=== PATIENT | male | born 2000 | race Caucasian/White ===

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

== ENCOUNTER → 2019-01-13 18:41 | Outpatient (CLI) | payer MEDICAID ==
[2018-09-05 06:05] VITALS: BMI 21.1
[2019-01-20 18:08] LABS: AEROBE ID Final report (())
== END | disposition home or self-care (01) ==
LOC: D.LABREF 18:41
PROVIDERS: ATTEND Urology
DX: N39.0 Urinary tract infection, site not specified (principal)

== ENCOUNTER → 2019-02-05 12:55 | Outpatient (CLI) | payer MEDICAID ==
[2018-09-05 06:05] VITALS: BMI 21.1
[2019-02-05 13:47] LABS: APPEARANCE HAZY (CLEAR); BILIRUBIN NEGATIVE (NEGATIVE); COLOR YELLOW (YELLOW); GLUCOSE NEGATIVE (NEGATIVE); KETONE NEGATIVE (NEGATIVE); NITRITE NEGATIVE (NEGATIVE); PROTEIN 1+ mg/dL (NEGATIVE); SPECIFIC GRAVITY 1.005 (1.005-1.020); UROBILINOGEN NORMAL (NORMAL)
[2019-02-05 13:50] LABS: BACTERIA MODERATE /hpf (NEGATIVE); RED CELLS - URINE 0-5 /hpf (0-5)
== END | disposition home or self-care (01) ==
LOC: D.LABREF 12:55
PROVIDERS: ATTEND Urology
DX: N31.9 Neuromuscular dysfunction of bladder, unspecified (principal); N39.0 Urinary tract infection, site not specified; Q91.7 Trisomy 13, unspecified

== ENCOUNTER 2019-02-18 13:24 | Inpatient (IN) | payer MEDICAID ==
[~2019-02-18] VITALS: Ht 152.4 cm; Wt 49.9 kg
[2019-02-18] MEDS ORDERED: AMOX TR-K CLV 475 ML PO (13:45)
[2019-02-18] MEDS ORDERED: BACTRIM 400-801 TAB PO (13:45)
[2019-02-18 14:22] LABS: BASOPHILS 0.1 % (0-2); EOSINOPHILS 0.9 % (0-7); HEMATOCRIT 43.4 % (42.0-54.0); HEMOGLOBIN 13.8 g/dL (13.5-17.5); IMMATURE GRANULOCYTES 0.2 % (0-5); LYMPHOCYTES 38.5 % (15-50); MCH 26.8 pg (26.0-34.0); MCHC 31.8 g/dL (31.0-37.0); MCV 84.4 fL (80.0-100.0); MEAN PLATELET VOLUME 8.9 fL (7.4-10.4); MONOCYTES 6.5 % (2-11); NEUTROPHILS 53.8 % (40-80); PLATELET COUNT 317 10x3/uL (130-400); RBC 5.14 10x6/uL (4.20-6.10); RDW 16.3 % (11.5-14.5); WBC 8.5 10x3/uL (4.8-10.8)
[2019-02-18 14:27] LABS: CALC OSMOLALITY 280 mosm/kg (275-300); CALCIUM 9.4 mg/dL (8.5-10.1); CARBON DIOXIDE 16.9 mmol/L (21.0-32.0); CHLORIDE - SERUM 105 mmol/L (98-107); GLUCOSE 130 mg/dL (74-106); POTASSIUM - SERUM 3.9 mmol/L (3.5-5.1); SODIUM 137 mmol/L (136-145); UREA NITROGEN 26 mg/dL (7-18); eGFR NON AFRICAN AMERICAN 21 mL/min (90-120)
[2019-02-18 14:32] LABS: APPEARANCE CLOUDY (CLEAR); BILIRUBIN NEGATIVE (NEGATIVE); COLOR STRAW (YELLOW); GLUCOSE NEGATIVE (NEGATIVE); KETONE NEGATIVE (NEGATIVE); NITRITE NEGATIVE (NEGATIVE); PROTEIN 2+ mg/dL (NEGATIVE); UROBILINOGEN NORMAL (NORMAL)
[2019-02-18 14:36] LABS: BACTERIA FEW /hpf (NEGATIVE); EPITHELIAL CELLS NSEEN /hpf (0-5); URIC ACID CRYSTALS 0-5 /hpf (NONE SEEN); WHITE CELLS - URINE 0-5 /hpf (NEGATIVE)
[2019-02-18 14:37] LABS: ALKALINE PHOSPHATASE 429 U/L (46-116); ALT (SGPT) 22 U/L (10-68); AMYLASE - SERUM 33 U/L (25-115); BILIRUBIN - TOTAL 0.17 mg/dL (0.2-1.3); LIPASE 178 U/L (73-393); TROPONIN-I < 0.017 ng/mL (0.000-0.060)
--- NOTE | 2019-02-18 16:14 | NUR ---
PT LEFT ED TO FLOOR @ 1614, PT HAD PULLED OUT IV CATH INTACT, IT TOOK A WHILE TO RESTART THE IV R/T PT FLAPPING ARMS, 20G PIV SL TO RIGHT FA, SECURED WITH OPSITE AND TAPE.
--- NOTE | 2019-02-18 16:51 | NUR ---
RECEIVED PT FROM ER ACCOMPANIED BY FAMILY. PT IS AWAKE AND ALERT BUT EXTREMELY DEVELOPMENTALLY DELAYED. RR EVEN AND UNLABORED ON RA. ABX AND BOLUS OF NS COMPLETE. NO S/S OF DISTRESS NOTED. WILL CTM.
[2019-02-18 17:58] VITALS: BP 136/83; BMI 21.5
[2019-02-18 19:09] LABS: APTT 29.6 SECONDS (22.8-39.4); INR 1.66 (0.85-1.17)
--- NOTE | 2019-02-18 19:19 | NUR ---
EVENING ROUNDS COMPLETE, PT LAYING IN BED, FAMILY AT BEDSIDE. NO SIGNS OF DISTRESS. PT IS ALERT BUT NOT ORIENTATED DUE TO DISABILITY. CL IN REACH, BED IN LOWEST POSITION.
--- NOTE | 2019-02-18 19:47 | NUR ---
DR HURTADO WAS CALLED MY IMAGING TO SEE IF THERE WAS ANYTHING TO GIVE TO HELP CALM PT WHILE HE WAS IN CT, THIS NURSE SPOKE WITH DR HURTADO AND WAS TOLD TO ORDER IM VALIUM WITH HIS REGULAR DOSE, AND TO GET THE DOSAGE INFORMATION FROM THE MOTHER AT BEDSIDE. WHEN THIS NURSE ASKED PT MOTHER WHAT WAS HIS NORMAL DOSE BEFORE STRESSFUL SITUATIONS OF VALIUM, PT MOTHER STATED HE DOESNT TAKE VALIUM. AFTER SPEAKING WITH HER FOR A FEW MINUTES THIS NURSE DISCOVERED PT TAKES LORAZAPAM TO HELP CALM HIM DOWN. PT MOTHER IS UNAWARE OF WHAT MG OF LORAZAPAM PT TAKES STATING "I DONT KNOW GRAMS OF ANYTHING". THIS NURSE ATTEMPTED TO PAGE DR HURTADO VIA ANSWERING SERVICE, ANSWERING SERVICE PAGED DR MCKEON AND DR JUSTIN RETURNED MY PAGE. ATTEMPTED TO CALL DR HURTADO VIA CELL NUMBER AND UNABLE TO LEAVE VOICE MAIL.
--- NOTE | 2019-02-18 22:59 | NUR ---
PT IS REFUSING TO ALLOW STAFF TO OBTAIN VITALS. E COMMERCE MARKETING ANALYST ATTEMPTED X2, THIS NURSE ATTEMPTED. PT MOTHER AT BEDSIDE, STATING HE IS GETTING TIRED. CL IN REACH, BED IN LOWEST POSITION.
[2019-02-19 04:41] LABS: BASOPHILS 0.3 % (0-2); EOSINOPHILS 1.2 % (0-7); HEMATOCRIT 38.9 % (42.0-54.0); HEMOGLOBIN 12.2 g/dL (13.5-17.5); IMMATURE GRANULOCYTES 0.1 % (0-5); LYMPHOCYTES 48.3 % (15-50); MCH 26.9 pg (26.0-34.0); MCHC 31.4 g/dL (31.0-37.0); MCV 85.7 fL (80.0-100.0); MEAN PLATELET VOLUME 8.7 fL (7.4-10.4); MONOCYTES 9.5 % (2-11); NEUTROPHILS 40.6 % (40-80); PLATELET COUNT 275 10x3/uL (130-400); RBC 4.54 10x6/uL (4.20-6.10); RDW 16.5 % (11.5-14.5); WBC 7.5 10x3/uL (4.8-10.8)
[2019-02-19 05:00] LABS: ALBUMIN 3.2 g/dL (3.4-5.0); ANION GAP 16.6 mmol/L (8-16); BILIRUBIN - TOTAL 0.18 mg/dL (0.2-1.3); CALCIUM 8.5 mg/dL (8.5-10.1); CARBON DIOXIDE 19.7 mmol/L (21.0-32.0); CREATININE - SERUM 3.4 mg/dL (0.6-1.3); POTASSIUM - SERUM 4.3 mmol/L (3.5-5.1); PROTEIN - SERUM 6.6 g/dL (6.4-8.2)
--- NOTE | 2019-02-19 07:43 | NUR ---
REPORT RECIEVED. PT SITTING IN CHAIR. MOM IN BED. RR EVEN AND UNLBAORED. PT REFUSED V/S TO BE TAKEN. CANELO WITH CT IN ROOM. MOM IS GOING TO HAVE HER BRING HIS ATIVAN TO FIND OUT WHAT DOSE HE TAKES AT HOME. WILL CTM
--- NOTE | 2019-02-19 09:00 | NUR ---
RECIEVED ORDERS FROM DR HURTADO TO GIVE PT ATIVAN 2MG IV ONE TIME FOR CT SCAN.
[2019-02-19 10:50] VITALS: Ht 152.4 cm; Wt 49.9 kg
[2019-02-19 11:51] VITALS: BP 106/54
[2019-02-19 12:20] LABS: INR 1.48 (0.85-1.17); PROTIME 17.3 SECONDS (11.6-15.0)
--- NOTE | 2019-02-19 17:01 | NUR ---
I have reviewed this patient and I concur with the Shift Assessment completed by the Licensed Practical Nurse today this shift.
--- NOTE | 2019-02-19 21:00 | NUR ---
PT UNWILLING TO LET THE GOLD LEAF PRINTER ZAINA TAKE VITAL SIGNS. HE PULLS HIS ARM AWAY WHEN WE GET CLOSE. PER HIS MOTHER, SHE WOULD LIKE TO HOLD OFF ON GETTING VITALS RIGHT NOW. PT DOES NOT APPEAR TO BE IN DISTRESS. HE IS SITTING UP IN THE CHAIR PLAYING ON A TABLET. RESPIRATIONS EVEN AND UNLABORED. NS INFUSING AT 125ML TO HIS RIGHT WRIST. CALL LIGHT WITHIN REACH. HIS MOM IS AT BEDSIDE.
[2019-02-20 02:00] VITALS: BP 110/62
[2019-02-20 04:31] LABS: BASOPHILS 0.3 % (0-2); EOSINOPHILS 2.5 % (0-7); HEMATOCRIT 37.9 % (42.0-54.0); HEMOGLOBIN 11.9 g/dL (13.5-17.5); IMMATURE GRANULOCYTES 0.2 % (0-5); MCH 26.9 pg (26.0-34.0); MCHC 31.4 g/dL (31.0-37.0); MCV 85.6 fL (80.0-100.0); MEAN PLATELET VOLUME 8.8 fL (7.4-10.4); MONOCYTES 8.2 % (2-11); NEUTROPHILS 48.8 % (40-80); PLATELET COUNT 268 10x3/uL (130-400); RBC 4.43 10x6/uL (4.20-6.10); RDW 16.5 % (11.5-14.5); WBC 6.4 10x3/uL (4.8-10.8)
[2019-02-20 04:54] LABS: ALBUMIN 2.8 g/dL (3.4-5.0); ANION GAP 14.5 mmol/L (8-16); BILIRUBIN - TOTAL 0.17 mg/dL (0.2-1.3); CALCIUM 8.3 mg/dL (8.5-10.1); CARBON DIOXIDE 18.6 mmol/L (21.0-32.0); CREATININE - SERUM 2.6 mg/dL (0.6-1.3); POTASSIUM - SERUM 4.1 mmol/L (3.5-5.1)
--- NOTE | 2019-02-20 07:33 | NUR ---
REPORT RECIEVED. PT SITTING IN BED SIDE CHAIR. RR EVEN AND UNLABORED. PT HAS A R WRIST PIV INFUSING NS @ 125. HE HAS A SUPRAPUBIC CATH DRAINING URINE. WHICH MOM SAYS IS DOING ALOT BETTER FROM YESTERDAY. WILL CTM
[2019-02-20 12:30] VITALS: BP 134/52
--- NOTE | 2019-02-20 15:19 | NUR ---
I have reviewed this patient and I concur with the Shift Assessment completed by the Licensed Practical Nurse today this shift.
[2019-02-20 15:31] VITALS: BP 149/75
--- NOTE | 2019-02-20 19:15 | NUR ---
BEDSIDE REPORT RECEIVED FROM DAY SHIFT, PT CARE ASSUMED. INTRODUCED SELF AND WROTE NAME ON BOARD. PT SITTING UP IN CHAIR AT BEDSIDE, A&A, REQUESTING SPRITE, PROVIDED. PT NONVERBAL, MOM AT BEDSIDE. DENIES ANY OTHER NEEDS AT THIS TIME. BED IN LOWEST POSITION, CALL LIGHT WITHIN REACH. WILL CONTINUE TO MONITOR.
[2019-02-20 20:00] VITALS: BP 165/123
[2019-02-20 23:00] VITALS: BP 133/89
[2019-02-21 05:08] LABS: BASOPHILS 0.2 % (0-2); EOSINOPHILS 3.2 % (0-7); HEMATOCRIT 35.7 % (42.0-54.0); HEMOGLOBIN 11.3 g/dL (13.5-17.5); IMMATURE GRANULOCYTES 0.2 % (0-5); LYMPHOCYTES 35.3 % (15-50); MCH 26.6 pg (26.0-34.0); MCHC 31.7 g/dL (31.0-37.0); MONOCYTES 8.4 % (2-11); NEUTROPHILS 52.7 % (40-80); PLATELET COUNT 251 10x3/uL (130-400); RBC 4.25 10x6/uL (4.20-6.10); RDW 16.2 % (11.5-14.5); WBC 5.2 10x3/uL (4.8-10.8)
[2019-02-21 05:50] LABS: ALBUMIN 2.5 g/dL (3.4-5.0); BILIRUBIN - TOTAL 0.08 mg/dL (0.2-1.3); CREATININE - SERUM 2.5 mg/dL (0.6-1.3); PROTEIN - SERUM 5.5 g/dL (6.4-8.2)
[2019-02-21 05:51] LABS: ANION GAP 11.1 mmol/L (8-16); CARBON DIOXIDE 28.3 mmol/L (21.0-32.0); POTASSIUM - SERUM 3.4 mmol/L (3.5-5.1)
--- NOTE | 2019-02-21 07:44 | NUR ---
REPORT RECIEVED. PT SITTING IN BEDSIDE CHAIR. RR EVEN AND UNLABORED. PT HAS A RIGHT WRIST PIV INFUSING D5 NS @100. MOM IN BED. PT HAS A SUPRAPUBIC CATH DRAINING URINE. CHAIR LOCKED AND CALL LIGHT WITHIN REACH. WILL CTM
[2019-02-21 09:30] VITALS: BP 122/69
--- NOTE | 2019-02-21 12:36 | NUR ---
Nutrition Follow-up: Mother reports pt tolerating PO intake and eating fairly well. No N/V/C/D. Diet: Renal No new wt - daily wts ordered Last BM: 02/20 Labs noted: K+ 3.4, GFR 35, Ca 8.0, Alb 2.5 Meds noted: D5 1/2NS @ 100 -Rec liberalizing diet 2/2 improving labs/hypokalemia. -Need new wt. -RD following.
--- NOTE | 2019-02-21 15:03 | NUR ---
I have reviewed this patient and I concur with the Shift Assessment completed by the Licensed Practical Nurse today this shift.
--- NOTE | 2019-02-21 19:10 | NUR ---
BEDSIDE REPORT RECEIVED FROM DAY SHIFT, PT CARE ASSUMED. WROTE NAME ON BOARD. PT SITTING UP IN BEDSIDE CHAIR, A&A, WATCHING VIDEOS ON HIS TABLET. MOM AT BEDSIDE. DENIES ANY NEEDS AT THIS TIME. BED IN LOWEST POSITION, SR X2, CALL LIGHT WITHIN REACH. WILL CONTINUE TO MONITOR.
[2019-02-22 04:18] LABS: BASOPHILS 0.2 % (0-2); EOSINOPHILS 2.6 % (0-7); HEMATOCRIT 36.1 % (42.0-54.0); HEMOGLOBIN 11.2 g/dL (13.5-17.5); IMMATURE GRANULOCYTES 0.2 % (0-5); LYMPHOCYTES 39.7 % (15-50); MCH 26.5 pg (26.0-34.0); MCV 85.3 fL (80.0-100.0); MEAN PLATELET VOLUME 8.9 fL (7.4-10.4); MONOCYTES 7.5 % (2-11); NEUTROPHILS 49.8 % (40-80); PLATELET COUNT 241 10x3/uL (130-400); RBC 4.23 10x6/uL (4.20-6.10); RDW 16.3 % (11.5-14.5); WBC 5.1 10x3/uL (4.8-10.8)
[2019-02-22 04:36] LABS: ALBUMIN 2.4 g/dL (3.4-5.0); ANION GAP 8.4 mmol/L (8-16); BILIRUBIN - TOTAL 0.19 mg/dL (0.2-1.3); CALCIUM 8.3 mg/dL (8.5-10.1); CARBON DIOXIDE 29.1 mmol/L (21.0-32.0); CREATININE - SERUM 2.5 mg/dL (0.6-1.3); POTASSIUM - SERUM 3.5 mmol/L (3.5-5.1); PROTEIN - SERUM 5.5 g/dL (6.4-8.2)
--- NOTE | 2019-02-22 08:00 | NUR ---
A/A/OX 1 TO SELF ONLY. SITTING UP IN BEDSIDE CHAIR. RESP EVEN AND UNLABORED. IV IS OUT OF ARM, REMOVED TAPE AND CATHLON WITH TIP INTACT. SUPRA PUBIC CATH IN PLACE AND DRAINING SLIGHTLY CLOUDY YELLOW URINE. ASSESSMENT COMPLETED AND WILL CONTINUE POC.
--- NOTE | 2019-02-22 11:20 | NUR ---
DR. HURTADO HERE TO CHANGE OUT SUPRA PUBIC CATH. ORDERED ATIVAN 2 MG IM PRIOR TO PROCEDURE. PT TOLERATED PROCEDURE WELL WITH NO DIFFICULTY. URINE NOW COMING OUT CLEAR LIGHT YELLOW.
[2019-02-22] MEDS ORDERED: DIFLUCAN100 MG PO (13:42)
--- NOTE | 2019-02-22 18:37 | NUR ---
REVIEWED ASSESSMENT BY ENGINE SPECIALIST AND I CONCUR.
--- NOTE | 2019-02-22 19:10 | NUR ---
BEDSIDE REPORT RECEIVED FROM DAY SHIFT, PT CARE ASSUMED. WROTE NAME ON BOARD. PT LYING IN CHAIR AT BEDSIDE WITH EYES CLOSED, RR EVEN AND NONLABORED, NO S/S OF DISTRESS, AROUSES EASILY TO VOICE. MOM AT BEDSIDE. DENIES ANY NEEDS AT THIS TIME. BED IN LOWEST POSITION, CALL LIGHT WITHIN REACH. WILL CONTINUE TO MONITOR.
[2019-02-23 05:28] LABS: BASOPHILS 0.2 % (0-2); EOSINOPHILS 2.7 % (0-7); HEMATOCRIT 36.2 % (42.0-54.0); HEMOGLOBIN 11.4 g/dL (13.5-17.5); LYMPHOCYTES 45.8 % (15-50); MCHC 31.5 g/dL (31.0-37.0); MCV 85.8 fL (80.0-100.0); MEAN PLATELET VOLUME 9.1 fL (7.4-10.4); MONOCYTES 8.4 % (2-11); NEUTROPHILS 42.9 % (40-80); PLATELET COUNT 219 10x3/uL (130-400); RBC 4.22 10x6/uL (4.20-6.10); RDW 16.2 % (11.5-14.5); WBC 4.8 10x3/uL (4.8-10.8)
[2019-02-23 06:37] LABS: ALBUMIN 2.3 g/dL (3.4-5.0); ANION GAP 11.2 mmol/L (8-16); BILIRUBIN - TOTAL 0.17 mg/dL (0.2-1.3); CALCIUM 8.1 mg/dL (8.5-10.1); CARBON DIOXIDE 26.2 mmol/L (21.0-32.0); CREATININE - SERUM 2.4 mg/dL (0.6-1.3); POTASSIUM - SERUM 3.4 mmol/L (3.5-5.1); PROTEIN - SERUM 5.5 g/dL (6.4-8.2)
--- NOTE | 2019-02-23 07:30 | NUR ---
A/A/OX1 TP SELF. SITTING UP IN CHAIR AT BEDSIDE PLAYING ON HIS TABLET. NO APPARENT PROBLEMS, RESP EVENA DN UNLABORED. SUPRAPUBIC MORGAN IN PLACE AND DRAINIG CLEAR LIGHT YELLOW URINE,ASSESSMENT COMPLETED AND WILL CONTINUE WITU POC
--- NOTE | 2019-02-23 11:47 | NUR ---
DISCHARGE INSTRUCTIONS REVIEWED WITH PTS PARENTS AND THEY VERBALIZE UNDERSTANDING WITH NO QUESTIONS. IV INFUSED AND DC'D WITHOUT DIFFICULTY. CATH TIP INTACT. LEFT FLOOR VIA W/C AND LEFT FACILITY VIA PRIVATE VEHICLE WITH HIS PARENTS
== END 2019-02-23 11:58 | disposition home or self-care (01) | DRG 698 ==
LOC: D.ER 13:24 → D.M2 14:55
PROVIDERS: Family Medicine; ADMIT Family Medicine; ATTEND Family Medicine
DX: T83.518A Infection and inflammatory reaction due to other urinary catheter, initial encounter (principal); A41.9 Sepsis, unspecified organism; N39.0 Urinary tract infection, site not specified; N17.9 Acute kidney failure, unspecified; Q91.7 Trisomy 13, unspecified

== ENCOUNTER → 2019-02-26 15:41 | Outpatient (CLI) | payer MEDICAID ==
[2019-02-19 10:50] VITALS: BMI 21.4
[~2019-02-26 15:41] MED LIST changes: +AMOX TR-K CLV 475 ML PO; +BACTRIM 400-801 TAB PO; +DIFLUCAN100 MG PO
[2019-02-26 16:10] LABS: BASOPHILS 0.2 % (0-2); EOSINOPHILS 1.9 % (0-7); HEMATOCRIT 40.5 % (42.0-54.0); HEMOGLOBIN 12.7 g/dL (13.5-17.5); IMMATURE GRANULOCYTES 0.3 % (0-5); LYMPHOCYTES 40.3 % (15-50); MCH 27.5 pg (26.0-34.0); MCHC 31.4 g/dL (31.0-37.0); MCV 87.9 fL (80.0-100.0); MEAN PLATELET VOLUME 8.7 fL (7.4-10.4); MONOCYTES 7.5 % (2-11); NEUTROPHILS 49.8 % (40-80); PLATELET COUNT 226 10x3/uL (130-400); RBC 4.61 10x6/uL (4.20-6.10); RDW 16.2 % (11.5-14.5); WBC 5.9 10x3/uL (4.8-10.8)
[2019-02-26 16:43] LABS: ALBUMIN 3.2 g/dL (3.4-5.0); ANION GAP 11.3 mmol/L (8-16); BILIRUBIN - TOTAL 0.16 mg/dL (0.2-1.3); CALCIUM 8.7 mg/dL (8.5-10.1); CARBON DIOXIDE 27.6 mmol/L (21.0-32.0); CREATININE - SERUM 2.3 mg/dL (0.6-1.3); PHOSPHOROUS 3.5 mg/dL (2.5-4.9); POTASSIUM - SERUM 4.9 mmol/L (3.5-5.1)
== END | disposition home or self-care (01) ==
LOC: D.LAB 15:41
PROVIDERS: ATTEND Nurse Practitioner Family
DX: N17.9 Acute kidney failure, unspecified (principal); Q99.9 Chromosomal abnormality, unspecified; Z68.52 Body mass index [BMI] pediatric, 5th percentile to less than 85th percentile for age

== ENCOUNTER → 2019-03-12 11:44 | Outpatient (CLI) | payer MEDICAID ==
[2019-02-19 10:50] VITALS: BMI 21.4
[2019-03-12 12:40] LABS: ALBUMIN 3.7 g/dL (3.4-5.0); ANION GAP 15.3 mmol/L (8-16); BILIRUBIN - TOTAL 0.18 mg/dL (0.2-1.3); CALCIUM 9.6 mg/dL (8.5-10.1); CARBON DIOXIDE 24.1 mmol/L (21.0-32.0); CREATININE - SERUM 2.6 mg/dL (0.6-1.3); PHOSPHOROUS 3.9 mg/dL (2.5-4.9); POTASSIUM - SERUM 4.4 mmol/L (3.5-5.1)
[2019-03-12 12:47] LABS: BASOPHILS 0.3 % (0-2); EOSINOPHILS 3.1 % (0-7); HEMATOCRIT 43.2 % (42.0-54.0); HEMOGLOBIN 13.7 g/dL (13.5-17.5); IMMATURE GRANULOCYTES 0.2 % (0-5); LYMPHOCYTES 47.4 % (15-50); MCH 27.3 pg (26.0-34.0); MCHC 31.7 g/dL (31.0-37.0); MCV 86.2 fL (80.0-100.0); MEAN PLATELET VOLUME 9.1 fL (7.4-10.4); MONOCYTES 13.4 % (2-11); NEUTROPHILS 35.6 % (40-80); RBC 5.01 10x6/uL (4.20-6.10); RDW 16.5 % (11.5-14.5); WBC 5.8 10x3/uL (4.8-10.8)
[2019-03-12 12:53] LABS: PLATELET COUNT 303 10x3/uL (130-400)
== END | disposition home or self-care (01) ==
LOC: D.LAB 11:44
PROVIDERS: ATTEND Nurse Practitioner Family
DX: N17.9 Acute kidney failure, unspecified (principal); Q99.9 Chromosomal abnormality, unspecified; Z68.52 Body mass index [BMI] pediatric, 5th percentile to less than 85th percentile for age

== ENCOUNTER → 2019-03-19 20:53 | Outpatient (CLI) | payer MEDICAID ==
[2019-02-19 10:50] VITALS: BMI 21.4
== END | disposition home or self-care (01) ==
LOC: D.LABREF 20:53
PROVIDERS: ATTEND Urology
DX: N39.0 Urinary tract infection, site not specified (principal); Z96.0 Presence of urogenital implants

== ENCOUNTER → 2019-05-21 15:04 | Outpatient (CLI) | payer MEDICAID ==
[2019-02-19 10:50] VITALS: BMI 21.4
[2019-05-21 16:29] LABS: BILIRUBIN NEGATIVE (NEGATIVE); GLUCOSE NEGATIVE (NEGATIVE); KETONE NEGATIVE (NEGATIVE); NITRITE NEGATIVE (NEGATIVE); SPECIFIC GRAVITY 1.015 (1.005-1.020); UROBILINOGEN NORMAL (NORMAL)
[2019-05-21 16:30] LABS: RED CELLS - URINE 0-5 /hpf (0-5)
[2019-05-21 16:31] LABS: BACTERIA MANY /hpf (NEGATIVE); YEAST >1+ /hpf (NONE SEEN)
== END | disposition home or self-care (01) ==
LOC: D.LABREF 15:04
PROVIDERS: ATTEND Urology
DX: N39.0 Urinary tract infection, site not specified (principal)

== ENCOUNTER → 2019-06-23 18:45 | Outpatient (CLI) | payer MEDICAID ==
[2019-02-19 10:50] VITALS: BMI 21.4
[2019-06-23 19:52] LABS: BILIRUBIN NEGATIVE (NEGATIVE); GLUCOSE NEGATIVE (NEGATIVE); KETONE NEGATIVE (NEGATIVE); NITRITE POSITIVE (NEGATIVE); UROBILINOGEN NORMAL (NORMAL)
[2019-06-23 19:53] LABS: BACTERIA MODERATE /hpf (NEGATIVE); WHITE CELLS - URINE >50 /hpf (NEGATIVE)
== END | disposition home or self-care (01) ==
LOC: D.LABREF 18:45
PROVIDERS: ATTEND Urology
DX: N39.0 Urinary tract infection, site not specified (principal)

== ENCOUNTER → 2019-09-08 11:25 | Outpatient (CLI) | payer MEDICAID ==
[2019-02-19 10:50] VITALS: BMI 21.4
[2019-09-08 12:06] LABS: BASOPHILS 0.2 % (0-2); EOSINOPHILS 1.3 % (0-7); HEMATOCRIT 47.4 % (42.0-54.0); HEMOGLOBIN 14.8 g/dL (13.5-17.5); IMMATURE GRANULOCYTES 0.2 % (0-5); LYMPHOCYTES 36.9 % (15-50); MCHC 31.2 g/dL (31.0-37.0); MCV 86.5 fL (80.0-100.0); MONOCYTES 9.4 % (2-11); RBC 5.48 10x6/uL (4.20-6.10); RDW 15.2 % (11.5-14.5); WBC 5.2 10x3/uL (4.8-10.8)
[2019-09-08 12:10] LABS: PLATELET COUNT 232 10x3/uL (130-400)
[2019-09-08 12:52] LABS: CREATININE - URINE 40.5 mg/dL (30-125); PRO/CRE RATIO URINE 1.8 mg/g
[2019-09-08 12:52] LABS: CARBON DIOXIDE 25.7 mmol/L (21.0-32.0); CREATININE - SERUM 3.3 mg/dL (0.6-1.3); PHOSPHOROUS 2.9 mg/dL (2.5-4.9); POTASSIUM - SERUM 4.7 mmol/L (3.5-5.1)
[2019-09-08 13:44] LABS: BILIRUBIN NEGATIVE (NEGATIVE); GLUCOSE NEGATIVE (NEGATIVE); KETONE NEGATIVE (NEGATIVE); NITRITE POSITIVE (NEGATIVE); SPECIFIC GRAVITY 1.005 (1.005-1.020); UROBILINOGEN NORMAL (NORMAL)
[2019-09-08 13:45] LABS: BACTERIA MODERATE /hpf (NEGATIVE); EPITHELIAL CELLS 0-5 /hpf (0-5); RED CELLS - URINE 0-5 /hpf (0-5)
== END | disposition home or self-care (01) ==
LOC: D.LAB 11:25
PROVIDERS: ATTEND Nurse Practitioner Family
DX: N18.3 Chronic kidney disease, stage 3 (moderate) (principal)

== ENCOUNTER → 2019-10-22 15:04 | Outpatient (CLI) | payer MEDICAID ==
[2019-02-19 10:50] VITALS: BMI 21.4
[2019-10-22 20:38] LABS: BILIRUBIN NEGATIVE (NEGATIVE); GLUCOSE NEGATIVE (NEGATIVE); KETONE NEGATIVE (NEGATIVE); NITRITE POSITIVE (NEGATIVE); UROBILINOGEN NORMAL (NORMAL)
[2019-10-22 20:40] LABS: BACTERIA MANY /hpf (NEGATIVE); WHITE CELLS - URINE >50 /hpf (NEGATIVE)
== END | disposition home or self-care (01) ==
LOC: D.LABREF 15:04
PROVIDERS: ATTEND Urology
DX: N39.0 Urinary tract infection, site not specified (principal)

== ENCOUNTER 2020-05-16 06:16 | Inpatient (IN) | payer MEDICAID ==
[~2020-05-16] VITALS: Ht 152.4 cm; Wt 55.8 kg
[2020-05-16] MEDS ORDERED: LISINOPRIL2.5 MG PO (06:24)
[2020-05-16] MEDS ORDERED: LEVAQUIN PO (06:24)
--- NOTE | 2020-05-16 06:25 | NUR ---
AFTER TRIAGE MOM REPORTS PT ON ? ANTIBIOTIC FOR URINARY TRACT INFECTION SINCE SUNDAY THIS PAST WEEK
--- NOTE | 2020-05-16 07:00 | NUR ---
NASAL SWAB SPECIMENS OBTAINED FOR FLU A/B, STREP AND COVID. PATIENT REQUIRED PHYSICAL HOLD X 3 PERSONS TO FACILITATE. PATIENT IS VERY AGITATED AND RESITANT TO CARE.
--- NOTE | 2020-05-16 07:05 | NUR ---
NEED FOR MILD SEDATION TO MORE EFFECTIVELY PROVIDE CARE IS EXPLAINED TO MOTHER. HALDOL AND ATIVAN ADMINISTERED IM IN LEFT DORSOGLUTEAL. PATIENT AGAIN REQUIRED HOLD BY 3 PERSONS TO FACILITATE ADMINISTRATION.
[2020-05-16 07:25] LABS: INFLUENZA TYPE A NEGATIVE (NEGATIVE); INFLUENZA TYPE B NEGATIVE (NEGATIVE)
[2020-05-16 07:26] LABS: SARS-CoV-2 ANTIGEN POSITIVE- SARS-COV-2 (NEGATIVE)
--- NOTE | 2020-05-16 07:27 | NUR ---
LAB CALLED WITH POSITIVE COVID ON PT.
--- NOTE | 2020-05-16 07:45 | NUR ---
IV STARTED AND BLOOD DRAWN FOR LABS AND CULTURES. IV BOLUS OF 1000ML NS AT 999ML/HR. MOTHER REMAINS AT BEDSIDE FOR SUPPORT.
[2020-05-16 08:02] LABS: BASOPHILS 0.3 % (0-2); EOSINOPHILS 0 % (0-7); HEMATOCRIT 50.3 % (42.0-54.0); HEMOGLOBIN 16.4 g/dL (13.5-17.5); IMMATURE GRANULOCYTES 0.3 % (0-5); LYMPHOCYTE ABS# 1.54 10x3/uL (1.32-3.57); LYMPHOCYTES 41.4 % (15-50); MCH 27.9 pg (26.0-34.0); MCHC 32.6 g/dL (31.0-37.0); MCV 85.7 fL (80.0-100.0); MEAN PLATELET VOLUME 9.4 fL (7.4-10.4); MONOCYTES 9.7 % (2-11); NEUTROPHILS 48.3 % (40-80); RBC 5.87 10x6/uL (4.20-6.10); RDW 15.7 % (11.5-14.5); WBC 3.7 10x3/uL (4.8-10.8)
[2020-05-16 08:03] LABS: PLATELET COUNT 113 10x3/uL (130-400)
--- NOTE | 2020-05-16 08:05 | NUR ---
SUPRAPUBIC CATHETER CLAMPED TO OBTAIN URINE FOR UA AND CULTURE.
[2020-05-16 08:13] LABS: ANION GAP 18.8 mmol/L (8-16); CALCIUM 8.9 mg/dL (8.5-10.1); CARBON DIOXIDE 20.5 mmol/L (21.0-32.0); CREATININE - SERUM 4.5 mg/dL (0.6-1.3); POTASSIUM - SERUM 4.3 mmol/L (3.5-5.1)
[2020-05-16 08:19] LABS: ALBUMIN 3.3 g/dL (3.4-5.0); BILIRUBIN - TOTAL 0.22 mg/dL (0.2-1.3); PROTEIN - SERUM 7.3 g/dL (6.4-8.2)
--- NOTE | 2020-05-16 08:20 | NUR ---
URINE SPECIMEN OBTAINED. CATHETER BACK TO LEG BAG DRAINAGE.
[2020-05-16 08:43] LABS: BILIRUBIN NEGATIVE (NEGATIVE); KETONE NEGATIVE (NEGATIVE); NITRITE NEGATIVE (NEGATIVE); UROBILINOGEN NORMAL mg/dL (< 2)
[2020-05-16 08:45] LABS: BACTERIA FEW HPF (NONE SEEN)
--- NOTE | 2020-05-16 09:30 | NUR ---
TOTAL FLUID BOLUS OF 1677ML COMPLETE. TO CT VIA STRETCHER. CT STAFF INFORMED OF PATIENT'S DEVELOPMENTAL LEVEL AND AGITATION WHEN DISTURBED.
--- NOTE | 2020-05-16 10:30 | NUR ---
REPORT CALLED TO JENNY DAVENPORT, MED II. MOTHER TO BE AT BEDSIDE DUE TO PATIENT'S DEVELOPMENTAL LEVEL AND COGNITIVE FUNCTION.
--- NOTE | 2020-05-16 10:50 | NUR ---
PT TO ROOM FROM ER. MOM AT BEDSIDE. PT UNDER COVERS RESTING AT PRESENT. IVF AND VANCO INFUSING ON ARRIVAL. LEGBAG FROM MICA MORGAN NOTED. PT WITH TABLET IN BED WITH HIM.
[2020-05-16 12:04] LABS: APTT 35.2 SECONDS (22.8-39.4); INR 1.5 (0.85-1.17); PROTIME 16.7 SECONDS (11.6-15.0)
[2020-05-16 12:05] LABS: D-DIMER-QUANTITATIVE 0.35 ug/mLFEU (0.20-0.54)
[2020-05-16 12:13] LABS: FERRITIN 188 ng/mL (3-244); LDH 258 U/L (85-227)
[2020-05-16 12:14] LABS: C-REACTIVE PROTEIN < 0.2 mg/dL (0.0-0.9)
[2020-05-16 12:47] LABS: ERYTHROCYTE SEDIMENTATION RATE 10 mm/hr (0-15)
[2020-05-16 17:13] VITALS: BP 136/72
[2020-05-16 18:03] VITALS: BP 136/72; BMI 24.0
--- NOTE | 2020-05-16 22:00 | NUR ---
PATIENT IN BED WITH MOTHER. NO S/S OF DISTRESS. MOTHER DENIES ANY NEW NEEDS OR CONCERNS AT THIS TIME. WILL CONT TO MONITOR.
[2020-05-17 02:30] VITALS: BP 126/81
--- NOTE | 2020-05-17 02:59 | NUR ---
PATIENT SLEEPING WITH NOTHER AT BEDSIDE. DENIES ANY NEEDS OR CONCERNS AT THIS TIME.
[2020-05-17 08:14] VITALS: BP 117/77
--- NOTE | 2020-05-17 10:41 | NUR ---
PATIENT IS SITTING UP IN BED. PATIENT'S MOM IS AT BEDSIDE. PATIENT IS NONVERBAL. PLAN OF CARE REVIEWED AND ASSESSMENT COMPLETED. CALL LIGHT IN REACH
--- NOTE | 2020-05-17 11:40 | NUR ---
PATIENT/ MOTHER EDUCATED ON SCD. PATIENT WILL NOT TOLERATE SOMETHING ON HIS LEGS.
[2020-05-17 13:18] VITALS: Ht 152.4 cm; Wt 55.8 kg
[2020-05-17 13:22] LABS: BASOPHILS 0 % (0-2); EOSINOPHILS 0 % (0-7); HEMATOCRIT 41.3 % (42.0-54.0); HEMOGLOBIN 13.4 g/dL (13.5-17.5); IMMATURE GRANULOCYTES 0.4 % (0-5); LYMPHOCYTE ABS# 1.02 10x3/uL (1.32-3.57); LYMPHOCYTES 19.6 % (15-50); MCH 27.6 pg (26.0-34.0); MCHC 32.4 g/dL (31.0-37.0); MEAN PLATELET VOLUME 9.7 fL (7.4-10.4); NEUTROPHIL ABS# 3.85 10x3/uL (1.78-5.38); RBC 4.86 10x6/uL (4.20-6.10); RDW 16.1 % (11.5-14.5)
[2020-05-17 13:26] VITALS: BP 155/46
[2020-05-17 13:27] LABS: ALBUMIN 2.5 g/dL (3.4-5.0); ANION GAP 19.1 mmol/L (8-16); BILIRUBIN - TOTAL 0.34 mg/dL (0.2-1.3); CALCIUM 7.7 mg/dL (8.5-10.1); CREATININE - SERUM 3.8 mg/dL (0.6-1.3); MAGNESIUM - SERUM 1.5 mg/dL (1.8-2.4); PHOSPHOROUS 2.5 mg/dL (2.5-4.9); POTASSIUM - SERUM 4.1 mmol/L (3.5-5.1)
[2020-05-17 13:36] LABS: PLATELET COUNT 143 10x3/uL (130-400); WBC 5.2 10x3/uL (4.8-10.8)
[2020-05-17 14:12] LABS: PROTEIN - SERUM 5.4 g/dL (6.4-8.2)
--- NOTE | 2020-05-17 14:25 | NUR ---
PATIENT GIVEN DC INSTRUCTIONS AT THIS TIME TO PATIENT, IV REMOVED WITH CATH INTACT. PT DENIES QUESTIONS FOR FOLLOW UP MEDS OR APPTS. NURSE WHEELS PATIENT DOWN TO PERSONAL CAR. BAGS IN HAND.
--- NOTE | 2020-05-17 17:38 | NUR ---
SPEECH JUST COMPLETED EVAL. MECHANICAL SOFT DIET, THIN LIQUIDS
[2020-05-17 20:00] VITALS: BP 124/75
--- NOTE | 2020-05-17 22:31 | NUR ---
IV TO LEFT WRIST OUT. TIP INTACT.
--- NOTE | 2020-05-17 22:49 | NUR ---
IV RESITED TO LEFT FOREARM BY Fabrizio STARR LPN. 20 GUGRAYSON, FIRST ATTEMPT, PT TOLERATED WELL.
--- NOTE | 2020-05-18 03:48 | NUR ---
I have reviewed this patient and I concur with the Shift Assessment completed by the Licensed Practical Nurse today this shift.
[2020-05-18 04:00] VITALS: BP 130/55
[2020-05-18 04:47] LABS: BASOPHILS 0.2 % (0-2); EOSINOPHILS 0 % (0-7); HEMATOCRIT 42.3 % (42.0-54.0); HEMOGLOBIN 14.1 g/dL (13.5-17.5); IMMATURE GRANULOCYTES 0.8 % (0-5); LYMPHOCYTE ABS# 0.68 10x3/uL (1.32-3.57); MCH 27.8 pg (26.0-34.0); MCHC 33.3 g/dL (31.0-37.0); MCV 83.4 fL (80.0-100.0); MEAN PLATELET VOLUME 9.6 fL (7.4-10.4); MONOCYTES 5.4 % (2-11); NEUTROPHIL ABS# 5.09 10x3/uL (1.78-5.38); NEUTROPHILS 82.6 % (40-80); PLATELET COUNT 144 10x3/uL (130-400); RBC 5.07 10x6/uL (4.20-6.10); RDW 16.2 % (11.5-14.5); WBC 6.2 10x3/uL (4.8-10.8)
[2020-05-18 05:19] LABS: ALBUMIN 2.8 g/dL (3.4-5.0); ANION GAP 19.1 mmol/L (8-16); BILIRUBIN - TOTAL 0.36 mg/dL (0.2-1.3); CREATININE - SERUM 4.2 mg/dL (0.6-1.3); PHOSPHOROUS 3.1 mg/dL (2.5-4.9); POTASSIUM - SERUM 4.1 mmol/L (3.5-5.1); PROTEIN - SERUM 6.1 g/dL (6.4-8.2)
[2020-05-18 05:20] LABS: MAGNESIUM - SERUM 1.9 mg/dL (1.8-2.4); VANCOMYCIN - RANDOM 31.7 ug/mL (10.0-20.0)
[2020-05-18 07:29] VITALS: BP 144/69
--- NOTE | 2020-05-18 08:18 | NUR ---
NURSE CANNOT GET PATIENT TO TAKE PO MEDS. NURSE STARTS IV MEDS AND IV ANTIBIOTICS. PATIENT'S MOTHER AT BEDSIDE. CALL LIGHT IN REACH
[2020-05-18 09:24] LABS: BACTERIA MODERATE HPF (NONE SEEN); BILIRUBIN NEGATIVE (NEGATIVE); KETONE NEGATIVE (NEGATIVE); NITRITE NEGATIVE (NEGATIVE); UROBILINOGEN NORMAL mg/dL (< 2); WHITE CELLS - URINE 25-50 HPF (0-1)
[2020-05-18 09:45] LABS: ERYTHROCYTE SEDIMENTATION RATE 4 mm/hr (0-15)
--- NOTE | 2020-05-18 10:08 | NUR ---
DUE TO PT'S COGNITIVE CAPABILITY - NURSE UNABLE TO INSTRUCT IS TO PATIENT, PATIENT DOES NOT MEET CRITERIA TO WEAR SCDS EITHER, MOTHER HAS BEEN EDUCATED, YOSEFPLUMBER PIPE FITTING ALSO SPOKE WITH MOTHER ALSO.
[2020-05-18 11:43] VITALS: BP 146/85
[2020-05-18 13:06] LABS: CREATININE - URINE 45.7 mg/dL (30-125); PRO/CRE RATIO URINE 1.6 mg/g; PROTEIN - URINE 73.2 mg/dL (0.0-11.9)
[2020-05-18 15:36] VITALS: BP 112/55
--- NOTE | 2020-05-18 15:42 | NUR ---
PATIENT'S O2 IS RUNNING HIGH 80'S UP TO 88. PATIENT IS UNCOOPERATIVE WHEN NURSE TRIES PUTTING 02 ON PATIENT, BUT HE QUICKLY PULLS NASAL CANNULA OFF EVERY TIME NURSE TRIES. NURSE TRIES TALKING WITH PATIENT AND MOTHER, BUT NO POSITIVE OUTCOME, NURSE PAGES PULMONOLOGY TO REPORT THIS. WAITING FOR CALL BACK.
--- NOTE | 2020-05-18 16:10 | NUR ---
NURSE IN ROOM WITH MD WHILE HE EXPLAINS THE IMPORTANCE OF WEARING 02 TO PERFUSE TO THE ORGANS PROPERLY, PT UNABLE TO KEEP 02 ON. NURSE HELPS PATIENT SIT UP IN A CHAIR FOR A WHILE. CALL LIGHT IN REACH
--- NOTE | 2020-05-18 19:05 | NUR ---
SITTING UP IN CHAIR BESIDE BED AWAKE, ALERT, WATCHING TV. RESP EVEN AND UNLABORED ON RA. MOM IN ROOM--NO DISTRESS NOTED.
[2020-05-18 20:00] VITALS: BP 169/76
[2020-05-19 05:56] LABS: BASOPHILS 0 % (0-2); EOSINOPHILS 0 % (0-7); HEMOGLOBIN 13.6 g/dL (13.5-17.5); IMMATURE GRANULOCYTES 0.7 % (0-5); LYMPHOCYTE ABS# 0.74 10x3/uL (1.32-3.57); LYMPHOCYTES 16.1 % (15-50); MCH 27.7 pg (26.0-34.0); MCHC 33.2 g/dL (31.0-37.0); MCV 83.5 fL (80.0-100.0); MEAN PLATELET VOLUME 9.6 fL (7.4-10.4); MONOCYTES 3.1 % (2-11); NEUTROPHIL ABS# 3.68 10x3/uL (1.78-5.38); NEUTROPHILS 80.1 % (40-80); PLATELET COUNT 165 10x3/uL (130-400); RBC 4.91 10x6/uL (4.20-6.10); RDW 16.3 % (11.5-14.5)
[2020-05-19 05:59] LABS: WBC 4.6 10x3/uL (4.8-10.8)
[2020-05-19 06:13] LABS: ALBUMIN 2.6 g/dL (3.4-5.0); BILIRUBIN - TOTAL 0.45 mg/dL (0.2-1.3); CALCIUM 8.8 mg/dL (8.5-10.1); CREATININE - SERUM 3.8 mg/dL (0.6-1.3); MAGNESIUM - SERUM 2.2 mg/dL (1.8-2.4); POTASSIUM - SERUM 4.3 mmol/L (3.5-5.1); PROTEIN - SERUM 5.9 g/dL (6.4-8.2); VANCOMYCIN - RANDOM 14.1 ug/mL (10.0-20.0)
--- NOTE | 2020-05-19 06:15 | NUR ---
CALLED TO PT'S ROOM--PT PULLED IV OUT OF LEFT WRIST--CATH INTACT, BANDAGE APPLIED. PT TOLERATED WELL. MOTHER AT BEDSIDE. LINENS TO BED AND PT'S PULL UP CHANGED AT THIS TIME.
[2020-05-19 06:29] LABS: ANION GAP 16.2 mmol/L (8-16); CARBON DIOXIDE 23.1 mmol/L (21.0-32.0); PHOSPHOROUS 5.3 mg/dL (2.5-4.9)
--- NOTE | 2020-05-19 07:00 | NUR ---
SITTING IN CHAIR AT BEDSIDE, AWAKE/ALERT/CONFUSED, T/R SELF AD MADELINE, SUPRAPUBIC CATH PATENT AND DRAINING CONCENTRATED URINE TO CLB IN AMPLE AMT, CATH CARE PROVIDED WITH DAILY BATH AND PRN, INCONT OF BOWEL WITH USE OF INCONT BRIEFS, PERICARE PROVIDED WITH DAILY BATH AND PRN, NO S/S OF PAIN SUCH MOANING/GROANING/GRIMACING, CALL LIGHT/PHONE/WATER WITHIN REACH, MOTHER AT BEDSIDE, NO S/S OF ACUTE DISTRESS OBSERVED.
[2020-05-19 08:00] VITALS: BP 118/69
--- NOTE | 2020-05-19 09:00 | NUR ---
UNABLE TO OBTAIN AN IV D/T PT RUNNING AWAY FROM STAFF WITHIN HIS ROOM
--- NOTE | 2020-05-19 13:00 | NUR ---
UNABLE TO OBTAIN AN IV D/T PT RUNNING AND PINCHING CAREGIVERS.
[2020-05-19 15:00] VITALS: BP 138/70
--- NOTE | 2020-05-19 15:50 | NUR ---
SPOKE WITH DR. CHEW, STATES TO CALL ANESTHESIA TO PUT IN A PICC LINE, CALLED ANESTHESIA INSTRUCTED, WAITING FOR THEM TO ARRIVE.
--- NOTE | 2020-05-19 16:00 | NUR ---
ANESTHESIA ACQUIRED IV WITH 22 GA CATH X 1 ATTEMPT IN LFA.
--- NOTE | 2020-05-19 19:45 | NUR ---
PATIENT IN BED WITH MOM AT BEDSIDE. NO S/S OF DISTRESS. ASSESSMENT COMPLETE. DENIES ANY NEEDS OR CONCERNS AT THIS TIME. CLIR. BED IN LOWEST POSITION. WILL CONT TO MONITOR.
--- NOTE | 2020-05-20 02:40 | NUR ---
I have reviewed this patient and I concur with the Shift Assessment completed by the Licensed Practical Nurse today this shift.
[2020-05-20 04:39] LABS: BASOPHILS 0.2 % (0-2); EOSINOPHILS 0 % (0-7); HEMATOCRIT 40.3 % (42.0-54.0); HEMOGLOBIN 13.3 g/dL (13.5-17.5); IMMATURE GRANULOCYTES 0.3 % (0-5); LYMPHOCYTE ABS# 0.61 10x3/uL (1.32-3.57); LYMPHOCYTES 10.3 % (15-50); MCH 27.2 pg (26.0-34.0); MCV 82.4 fL (80.0-100.0); MEAN PLATELET VOLUME 9.5 fL (7.4-10.4); MONOCYTES 3.2 % (2-11); NEUTROPHIL ABS# 5.09 10x3/uL (1.78-5.38); PLATELET COUNT 183 10x3/uL (130-400); RBC 4.89 10x6/uL (4.20-6.10); RDW 16.2 % (11.5-14.5)
[2020-05-20 04:46] LABS: WBC 5.9 10x3/uL (4.8-10.8)
[2020-05-20 05:03] LABS: ALBUMIN 2.6 g/dL (3.4-5.0); ANION GAP 16.1 mmol/L (8-16); BILIRUBIN - TOTAL 0.35 mg/dL (0.2-1.3); CALCIUM 8.4 mg/dL (8.5-10.1); CARBON DIOXIDE 20.7 mmol/L (21.0-32.0); CREATININE - SERUM 3.9 mg/dL (0.6-1.3); MAGNESIUM - SERUM 2.4 mg/dL (1.8-2.4); POTASSIUM - SERUM 3.8 mmol/L (3.5-5.1); PROTEIN - SERUM 6.4 g/dL (6.4-8.2)
[2020-05-20 05:11] LABS: PHOSPHOROUS 3.3 mg/dL (2.5-4.9); VANCOMYCIN - RANDOM 9.3 ug/mL (10.0-20.0)
[2020-05-20 08:27] VITALS: BP 81/45
--- NOTE | 2020-05-20 12:22 | NUR ---
Nutrition Follow-up: Pt in droplet isolation; covid-19+. Developmentally delayed. Nursing reports pt not eating well. ST following. Diet: Renal, Mech Soft with Ground Meat No PO intake recorded No new wt; last wt: 123# (05/17) Labs noted: Na 146, K+ 3.8, BUN 55, Cre 3.9, GFR 21, Glu 133, Ca 8.4, PO4 3.3, Alb 2.6 Meds noted: Protonix, Decadron, zinc sulfate, vit C, vit D, D5W @ 75, electrolyte protocol -Encourage PO intake and honor food preferences within diet restrictions. -Offer/encourage nutrition supplements. -Need new wt. -RD follow-up: 05/24
[2020-05-20 17:01] VITALS: BP 102/49
--- NOTE | 2020-05-20 19:45 | NUR ---
PATIENT IN BED WITH MOM AT BEDSIDE. NO S/S OF DISTRESS. ORIENTED AT BASELINE. CLIR. BED IN LOWEST POSITION. WILL CONT TO MONITOR.
[2020-05-20 21:15] VITALS: BP 110/64
--- NOTE | 2020-05-20 23:00 | NUR ---
MOM ASKED FOR WATER. PATIENT SLEEPING IN BED. NO S/S OF DISTRESS. CLIR. WILL CONT TO MONITOR.
[2020-05-21 07:09] LABS: BASOPHILS 0.1 % (0-2); EOSINOPHILS 0 % (0-7); HEMATOCRIT 42.2 % (42.0-54.0); HEMOGLOBIN 13.7 g/dL (13.5-17.5); IMMATURE GRANULOCYTES 1.3 % (0-5); LYMPHOCYTE ABS# 0.72 10x3/uL (1.32-3.57); LYMPHOCYTES 8.4 % (15-50); MCH 27.2 pg (26.0-34.0); MCHC 32.5 g/dL (31.0-37.0); MCV 83.7 fL (80.0-100.0); NEUTROPHIL ABS# 7.33 10x3/uL (1.78-5.38); NEUTROPHILS 85.2 % (40-80); PLATELET COUNT 198 10x3/uL (130-400); RBC 5.04 10x6/uL (4.20-6.10); RDW 16.8 % (11.5-14.5)
[2020-05-21 07:24] LABS: WBC 8.6 10x3/uL (4.8-10.8)
[2020-05-21 07:25] LABS: ALBUMIN 2.7 g/dL (3.4-5.0); ANION GAP 18.4 mmol/L (8-16); BILIRUBIN - TOTAL 0.44 mg/dL (0.2-1.3); CALCIUM 8.5 mg/dL (8.5-10.1); CARBON DIOXIDE 20.8 mmol/L (21.0-32.0); CREATININE - SERUM 3.7 mg/dL (0.6-1.3); MAGNESIUM - SERUM 2.3 mg/dL (1.8-2.4); PHOSPHOROUS 4.1 mg/dL (2.5-4.9); POTASSIUM - SERUM 4.2 mmol/L (3.5-5.1); PROTEIN - SERUM 6.1 g/dL (6.4-8.2); VANCOMYCIN - RANDOM 25.8 ug/mL (10.0-20.0)
--- NOTE | 2020-05-21 09:40 | NUR ---
PATIENT CONSISTENTLY PULLS OUT IVS THAT ARE PLACED. MOTHER IS SLEEPING AND NOT INTERACTIVE WITH CARE DESPITE BEING ASKED. TELEMETRY REMOVED BY PATIENT REPEATEDLY. PATIENT WILL NOT TAKE PO MEDS EVEN WHEN CRUSHED. COMBATIVE WITH CAREGIVERS. ALEX KENNEDY INFORMED. NO NEW ORDERS AT THIS TIME. WILL CONTINUE TO MONITOR PATIENT CONDITION. HOLDING ALL MEDS AT THIS TIME. PATIENT WAS SITTING IN RECLINER CHAIR UPON NURSE ENTERING ROOM. HIS LEFT LEG WAS BETWEEN THE FOOT REST AND WEDGED IN TIGHT. THERE IS AN INDENT IN THE SKIN FROM THE PRESSURE AND IT WAS RED. WILL MONITOR FOR BREAKDOWN OR SIGNS OF IMPAIRED SKIN INTEGRITY. ASSEMBLER PLASTIC BOAT AWARE OF EVENTS.
--- NOTE | 2020-05-21 09:48 | NUR ---
CNAS REPORT PATIENT WILL NOT ALLOW THEM TO TAKE VITAL SIGNS.
--- NOTE | 2020-05-21 12:00 | NUR ---
ENTERED ROOM TO CHECK ON PATIENT. MOTHER CLEANING UP PATIENT'S BM. SHE APPLIED BARIER CREAM FOR RASH. NURSE HELPED CHANGE BED.
--- NOTE | 2020-05-21 12:53 | NUR ---
CNAS FINALLY WERE ABLE TO GET AXILLARY TEMP OF 103.5 AND HR 117. UNABLE TO GET BP DUE TO PT NONCOMPLIANCE. NURSE INFORMED KEENAN KENNEDY. CHANGED TYLENOL PO TO RECTAL AND ADMINISTERED. APPLIED ICE PACK TO PATIENTS SIDE. PATIENT HOLDING SHEET OVER HEAD. REMOVED BLANKET. WILL ATTEMPT TO RECHECK TEMP IN AN HOUR. WILL CONTINUE TO MONITOR PATIENT CONDITION. UNABLE TO KEEP TELE ON PATIENT. MOTHER SITTING IN CHAIR BY BED SLEEPING.
[2020-05-21 16:44] VITALS: BP 67/45
--- NOTE | 2020-05-21 17:50 | NUR ---
NURSE GOT VITAL SIGNS ON PATIENT. PATIENT RESISTING THE WHOLE TIME. THE BP OBTAINED WAS 67/45 MAP OF 52, ACCURACY QUESTIONED DUE TO MOVEMENT. HR 83. SPO2 99, AND 99.1 TEMP. NURSE SPOKE WITH MARCIA AGAIN. STILL NO IV ACCESS OR IMPROVEMENT IN PATIENT COMPLIANCE. RECIEVED TELEPHONE ORDERS FOR ROCEPHIN 1 G IM QDAILY AND ZITHROMAX 500 MG PO DAILY. ROCEPHIN ADMINISTERED IM. WILL ATTEMPT TO GIVE ORAL ZITHRO TOMORROW MORNING. NO PO MEDS HAVE BEEN TOLERATED YET. WILL CONTINUE TO MONITOR PATIENT CONDITION.
[2020-05-21 21:09] VITALS: BP 111/52
[2020-05-22] VITALS: BP 106/59
--- NOTE | 2020-05-22 00:02 | NUR ---
PATIENT CONTINUES TO REFUSE TO WEAR TELEMETRY. EDUCATED MOTHER ON THE IMPORTANCE BUT SHE WAS UNRESEPTIVE. TELEMTRY D/C AND RETURNED TO ESTIMATOR PROJECT MANAGER. PT CONTINUES TO REFUSE VITALS BUT GOT A BP @ 2109 OF 111/52 BECAUSE OF HOW LOW THE PRIOR ONE WAS. TEMP 98.9 AT THIS TIME. WATER PROVIDED PER MOTHERS REQUEST. FECES NOTED TO BE IN VARIOUS PLACE IN THE ROOM. LINEN CHANGE PROVIDED. EDUCATED MOTHER ON CALLING FOR ASSISTANCE. PTS MOTHER NOW MENSTRUATING WITH BLOOD ON LINEN, REQUIRING MORE ASSISTANCE THAN PATIENT. PT REMAINS COMBATIVE WITH STAFF AND MOTHER.
[2020-05-22 05:52] LABS: BASOPHILS 0.2 % (0-2); EOSINOPHILS 0 % (0-7); HEMATOCRIT 41.7 % (42.0-54.0); HEMOGLOBIN 13.7 g/dL (13.5-17.5); IMMATURE GRANULOCYTES 1.1 % (0-5); LYMPHOCYTES 13.1 % (15-50); MCH 27.7 pg (26.0-34.0); MCHC 32.9 g/dL (31.0-37.0); MCV 84.2 fL (80.0-100.0); MEAN PLATELET VOLUME 9.3 fL (7.4-10.4); MONOCYTES 4.9 % (2-11); NEUTROPHIL ABS# 4.33 10x3/uL (1.78-5.38); NEUTROPHILS 80.7 % (40-80); PLATELET COUNT 214 10x3/uL (130-400); RBC 4.95 10x6/uL (4.20-6.10); RDW 16.7 % (11.5-14.5)
[2020-05-22 05:53] LABS: WBC 5.4 10x3/uL (4.8-10.8)
[2020-05-22 06:10] LABS: ALBUMIN 2.7 g/dL (3.4-5.0); ANION GAP 17.8 mmol/L (8-16); BILIRUBIN - TOTAL 0.31 mg/dL (0.2-1.3); CALCIUM 8.6 mg/dL (8.5-10.1); CARBON DIOXIDE 20.2 mmol/L (21.0-32.0); CREATININE - SERUM 3.7 mg/dL (0.6-1.3); PROTEIN - SERUM 6.6 g/dL (6.4-8.2); VANCOMYCIN - RANDOM 15.9 ug/mL (10.0-20.0)
[2020-05-22 09:41] VITALS: BP 118/63
[2020-05-22 22:19] VITALS: BP 131/70
--- NOTE | 2020-05-22 22:41 | NUR ---
PT WAS RESTLESS DURING ASSESSMENT, NOW LAYING IN BED WITH HIS MOTHER ASLEEP. PT DOES NOT HAVE AN IV. ORIENTATION IS NOT ASSESSABLE. PT IS NON VERBAL WITH OCCASIONAL GROANING. NO MEDS DUE THIS SHIFT. NO FURTHER NEEDS AT THIS TIME. BREIF ON PT DRY AND INTACT
[2020-05-23 00:30] VITALS: BP 115/62
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
[2020-05-23 04:30] VITALS: BP 110/60
[2020-05-23 08:07] LABS: CREATININE - SERUM 3.4 mg/dL (0.6-1.3); VANCOMYCIN - RANDOM 7.8 ug/mL (10.0-20.0)
--- NOTE | 2020-05-23 08:30 | NUR ---
PATIENT SITTING IN FLOOR OUTSIDE OF ROOM AGGRAVATED THAT THE MOM LEFT, WEED SCIENCE RESEARCH TECHNICIAN AND I PICKED HIM UP AND ASSISTED HIM BACK TO THE ROOM, BED CHANGED AND ROOM CLEANED UP, PATIENT HAS CALMED DOWN AND CARTOONS ARE PLAYING, DAD RETURNED TO BE WITH PATIENT, SPRITE PROVIDED, NO FURTHER NEEDS AT THIS TIME, LAURA CALDERON
[2020-05-23 09:07] LABS: BASOPHILS 0.3 % (0-2); EOSINOPHILS 0 % (0-7); HEMATOCRIT 44.7 % (42.0-54.0); HEMOGLOBIN 14.5 g/dL (13.5-17.5); IMMATURE GRANULOCYTES 1.6 % (0-5); LYMPHOCYTE ABS# 0.97 10x3/uL (1.32-3.57); LYMPHOCYTES 15.8 % (15-50); MCH 27.7 pg (26.0-34.0); MCHC 32.4 g/dL (31.0-37.0); MCV 85.3 fL (80.0-100.0); MEAN PLATELET VOLUME 9.8 fL (7.4-10.4); MONOCYTES 6.7 % (2-11); NEUTROPHIL ABS# 4.63 10x3/uL (1.78-5.38); NEUTROPHILS 75.6 % (40-80); RBC 5.24 10x6/uL (4.20-6.10); WBC 6.1 10x3/uL (4.8-10.8)
[2020-05-23 09:10] LABS: PLATELET COUNT 320 10x3/uL (130-400)
[2020-05-23 09:13] LABS: ALBUMIN 3.1 g/dL (3.4-5.0); BILIRUBIN - TOTAL 0.3 mg/dL (0.2-1.3); CARBON DIOXIDE 20.8 mmol/L (21.0-32.0); CREATININE - SERUM 3.5 mg/dL (0.6-1.3); POTASSIUM - SERUM 4.4 mmol/L (3.5-5.1); PROTEIN - SERUM 6.9 g/dL (6.4-8.2)
[2020-05-23 09:19] LABS: ANION GAP 20.6 mmol/L (8-16)
[2020-05-23 12:49] VITALS: BP 142/82
--- NOTE | 2020-05-23 12:55 | NUR ---
20G IV STICK X1 RIGHT AC, IV MEDICATION ADMINISTERED, PATIENT TOLERATED AND NO FURTHER NEEDS AT THIS TIME, LAURA CALDERON
[2020-05-24 08:16] LABS: BASOPHILS 0.3 % (0-2); EOSINOPHILS 0 % (0-7); HEMATOCRIT 40.9 % (42.0-54.0); HEMOGLOBIN 13.2 g/dL (13.5-17.5); IMMATURE GRANULOCYTES 1.3 % (0-5); LYMPHOCYTE ABS# 1.55 10x3/uL (1.32-3.57); LYMPHOCYTES 20.2 % (15-50); MCH 27.4 pg (26.0-34.0); MCHC 32.3 g/dL (31.0-37.0); MCV 84.9 fL (80.0-100.0); MEAN PLATELET VOLUME 9.6 fL (7.4-10.4); MONOCYTES 8.1 % (2-11); NEUTROPHIL ABS# 5.38 10x3/uL (1.78-5.38); NEUTROPHILS 70.1 % (40-80); PLATELET COUNT 292 10x3/uL (130-400); RBC 4.82 10x6/uL (4.20-6.10); RDW 16.8 % (11.5-14.5); WBC 7.7 10x3/uL (4.8-10.8)
[2020-05-24 08:22] LABS: ALBUMIN 2.8 g/dL (3.4-5.0); ANION GAP 10.5 mmol/L (8-16); BILIRUBIN - TOTAL 0.39 mg/dL (0.2-1.3); CALCIUM 8.8 mg/dL (8.5-10.1); CREATININE - SERUM 2.9 mg/dL (0.6-1.3); MAGNESIUM - SERUM 2.8 mg/dL (1.8-2.4); POTASSIUM - SERUM 3.5 mmol/L (3.5-5.1); PROTEIN - SERUM 6.4 g/dL (6.4-8.2); VANCOMYCIN - RANDOM 4.8 ug/mL (10.0-20.0)
--- NOTE | 2020-05-24 09:44 | MORECARE ---
CASE MANAGEMENT DISCHARGE SUMMARY PATIENT: NATE SCHULTE JR UNIT: [id number] ADM DATE: 05/16/20 AGE: 20 : 99 SEX: M ROOM/BED: D.2128 AUTHOR: BUCK MOJICA PHYSICIAN: REFERRING PHYSICIAN: DELMER MA MD DATE OF SERVICE: 05/24/20 Discharge Plan Patient Name: NATE SCHULTE [facility] [facility] 2000 Planned Disposition: Home Anticipated Discharge Date: Discharge Date: Expected LOS: Initial Reviewer: [email or web address] Initial Review Date: 05/24/2020 Generated: 05/24/20 10:43 am Patient Name: NATE SCHULTE Page [id number] at 0944 All edits/amendments must be made on the electronic document DICTATION DATE: 05/24/2044 DICTATING MACHINE TRANSCRIBER: SHAR 05/24/20 0944 RPT#: [id number] DC DATE: STATUS: ADM IN [address] [place] [address] END OF REPORT
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
--- NOTE | 2020-05-24 10:01 | NUR ---
PATIENT ALERT AND CONFUSED TO SITUATION, TIME AND PLACE, RESP EVEN AND NON LABORED, PATIENT IS ANXIOUS AND RESTLESS, NO IV ACCESS, X2 STICKS TO LEFT AC 20G D5W @100 INFUSING, ARM BOARD APPLIED AND SECURED, MEDICATION ADMINISTRATED, EXTRA MEAL TRAY ORDERED FOR PARENT AT BEDSIDE, NO FURTHER NEEDS AT THIS TIME, CLIR, BLP
--- NOTE | 2020-05-24 13:24 | NUR ---
Nutrition Reassessment/Follow-up: Pt in droplet isolation; covid-19+. Nursing reports pt not eating well; drinking ok. Pulling out lines. Diet: Renal, Mech Soft with Ground Meat No new wt; last wt: 123# (05/17) Labs noted: BUN 44, Cre 2.9, GFR 29, Glu 119, Mg 2.8, Alb 2.8 Meds noted: Decadron, Protonix, electrolyte protocol -Nutrition needs unchanged; no new wt available. -Encourage PO intake and honor food preferences within diet restrictions. -+Nepro with meals. -Pt may benefit from an appetite stimulant. -Need new wt if possible. -RD will follow up within 2-3 days.
--- NOTE | 2020-05-24 18:00 | NUR ---
I have reviewed this patient and I concur with the Shift Assessment completed by the Licensed Practical Nurse today this shift.
--- NOTE | 2020-05-24 19:05 | NUR ---
pt lying in bed, video in use, mother at bedside, pt with left PIC wrapped with coban and secured to arm board. no distress noted will continue to montior
[2020-05-24 20:00] VITALS: BP 126/72
--- NOTE | 2020-05-24 22:00 | NUR ---
pt has been noted to be pulling at arm band and marylou LUIS monitored left hand warm to touch cap refill<3 sec
--- NOTE | 2020-05-24 23:17 | NUR ---
scheduled ativan given to left PIV, pt has been noted to be tugging at PIV line, as ativan was being pushed noted to be leaking out of PIV extension set, wasted ativan and replaced extension set. Scheduled ativan 1 mg IV given per orders. Pt continues to be restless and pull at PIV. Covered with coban and resecured to arm board. Mother at bedside. Other than restlessness pt with no acute distress, will cotninue to monitor
[2020-05-25 04:00] VITALS: BP 142/92
[2020-05-25 06:31] LABS: BASOPHILS 0.3 % (0-2); EOSINOPHILS 0.1 % (0-7); HEMATOCRIT 43.3 % (42.0-54.0); IMMATURE GRANULOCYTES 2.2 % (0-5); LYMPHOCYTE ABS# 1.35 10x3/uL (1.32-3.57); LYMPHOCYTES 19.5 % (15-50); MCH 27.5 pg (26.0-34.0); MCHC 32.3 g/dL (31.0-37.0); MCV 84.9 fL (80.0-100.0); MEAN PLATELET VOLUME 9.6 fL (7.4-10.4); MONOCYTES 7.1 % (2-11); NEUTROPHIL ABS# 4.89 10x3/uL (1.78-5.38); NEUTROPHILS 70.8 % (40-80); PLATELET COUNT 288 10x3/uL (130-400); RDW 16.4 % (11.5-14.5); WBC 6.9 10x3/uL (4.8-10.8)
[2020-05-25 07:24] LABS: ANION GAP 15.2 mmol/L (8-16); BILIRUBIN - TOTAL 0.48 mg/dL (0.2-1.3); CALCIUM 8.7 mg/dL (8.5-10.1); CARBON DIOXIDE 22.2 mmol/L (21.0-32.0); CREATININE - SERUM 2.6 mg/dL (0.6-1.3); MAGNESIUM - SERUM 2.6 mg/dL (1.8-2.4); POTASSIUM - SERUM 3.4 mmol/L (3.5-5.1); PROTEIN - SERUM 6.3 g/dL (6.4-8.2); VANCOMYCIN - RANDOM 2.8 ug/mL (10.0-20.0)
--- NOTE | 2020-05-25 14:58 | NUR ---
PATIENT LYING SUPINE RESTING WITH EYES OPEN, NON VERBAL, RESP EVEN AND NON LABORED, NO S/S OF DISTRESS, PATIENT TOLERATED MEDICATIONS, SPRITE AND ICE WATER PROVIDED, NO FURTHER NEEDS AT THIS TIME, LAURA CALDERON
--- NOTE | 2020-05-25 18:04 | NUR ---
[phone] received phone message for call back to Ciro Chris. CM called Mr. Perez back and left a message. CM will continue to follow and will assist as needed with dc plans/needs. [phone] Phone call to [facility]PS ([phone]) to inquire about patient's status. CM informed that Ciro Perez will call CM back regarding status. Patient Reference ID (RID#) [id number]. CM will continue to follow and will assist as needed with dc plans/needs.
--- NOTE | 2020-05-25 19:30 | NUR ---
PT IN BED WITH MOTHER AT THIS TIME, PT NONVERBAL, RESP EVEN AND UNLABORED, NO DISTRESS NOTED, CL IN REACH, SR UP X 2.
[2020-05-25 20:00] VITALS: BP 116/58
--- NOTE | 2020-05-26 03:34 | NUR ---
I have reviewed this patient and I concur with the Shift Assessment completed by the Licensed Practical Nurse today this shift.
[2020-05-26 04:00] VITALS: BP 126/57
[2020-05-26 06:19] LABS: BASOPHILS 0.4 % (0-2); EOSINOPHILS 0.4 % (0-7); HEMATOCRIT 43.3 % (42.0-54.0); HEMOGLOBIN 13.9 g/dL (13.5-17.5); IMMATURE GRANULOCYTES 1.5 % (0-5); LYMPHOCYTE ABS# 2.09 10x3/uL (1.32-3.57); LYMPHOCYTES 30.6 % (15-50); MCH 27.5 pg (26.0-34.0); MCHC 32.1 g/dL (31.0-37.0); MCV 85.7 fL (80.0-100.0); MEAN PLATELET VOLUME 9.9 fL (7.4-10.4); MONOCYTES 5.1 % (2-11); NEUTROPHIL ABS# 4.22 10x3/uL (1.78-5.38); PLATELET COUNT 285 10x3/uL (130-400); RBC 5.05 10x6/uL (4.20-6.10); RDW 16.7 % (11.5-14.5); WBC 6.8 10x3/uL (4.8-10.8)
[2020-05-26 06:53] LABS: ALBUMIN 2.7 g/dL (3.4-5.0); ANION GAP 13.1 mmol/L (8-16); BILIRUBIN - TOTAL 0.43 mg/dL (0.2-1.3); CALCIUM 8.8 mg/dL (8.5-10.1); CREATININE - SERUM 2.7 mg/dL (0.6-1.3); MAGNESIUM - SERUM 2.4 mg/dL (1.8-2.4); POTASSIUM - SERUM 3.1 mmol/L (3.5-5.1); PROTEIN - SERUM 6.4 g/dL (6.4-8.2)
--- NOTE | 2020-05-26 07:00 | NUR ---
ON HANDS/KNEES ATTEMPTING TO PUSH MOTHER OOB, WHEN MOTHER MOVED OVER SHE STATED "I NEED HELP" SO THIS NURSE ASSISTED PT TO LIE DOWN NEXT TO MOTHER AND ATTEMPTED TO CALM HIM BY RUBBING HIS BACK, HE TOLERATED FOR APPROX 1 MIN, PT IS ALERT TO WHAT'S HAPPENING AROUND HIM BUT IS NON-VERBAL, DOES NOT SEEM TO COMPREHEND WHEN SPOKEN TO BUT DOES UNDERSTAND SOME HAND GESTURES WITH SPEEKING TO HIM, T/R SELF AD MADELINE, INCONT OF BOWEL WITH PERICARE PROVIDED WITH DAILY BATH AND PRN, MOTHER CONT TO BE PRIMARY CAREGIVER EVEN WHILE PT IS INPT HERE, NO S/S OF PAIN SUCH MOANING/GROANING/GRIMACING, IV ACCESS TO LEFT AC IS PATENT AND FLUSHES EASILY, NO REDNESS/SWELLING PRESENT, CALL LIGHT/PHONE/WATER WITHIN REACH, NO S/S OF ACUTE DISTRESS OBSERVED.
[2020-05-26 08:39] VITALS: BP 122/60
[2020-05-26 12:24] VITALS: BP 135/82; BP 142/64
[2020-05-26] MEDS ORDERED: [UNRECOGNIZED DRUG - OTHER] PO (12:39)
[2020-05-26] MEDS ORDERED: ZITHROMAX200 MG/5 M PO (12:40)
[2020-05-26] MEDS ORDERED: OMNICEF125 MG/5 M PO (12:41)
--- NOTE | 2020-05-26 14:00 | NUR ---
Discharge on hold at this time.
[2020-05-26 16:01] VITALS: BP 138/66
--- NOTE | 2020-05-26 17:30 | NUR ---
Dad needs to go home to picking tech medication, staff in room with pt.
--- NOTE | 2020-05-26 17:45 | NUR ---
Dad called asking if he can have someone watch pt for him as he has to go make living arrangements for them, permission granted for an adult to monitor him.
--- NOTE | 2020-05-26 18:05 | NUR ---
A young woman presented to unit to sit with pt, oriented/provided necessary PPE and escorted her to room.
--- NOTE | 2020-05-26 19:30 | NUR ---
PT IN BED, PT FATHER IN BED, RESP EVEN AND UNLABORED, NO DISTRESS NOTED, CL IN REACH.
[2020-05-26 22:31] VITALS: BP 108/70
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
[2020-05-27 04:54] VITALS: BP 94/53
[2020-05-27 05:26] LABS: BASOPHILS 0.1 % (0-2); EOSINOPHILS 1.3 % (0-7); HEMATOCRIT 41.3 % (42.0-54.0); HEMOGLOBIN 13.3 g/dL (13.5-17.5); IMMATURE GRANULOCYTES 0.9 % (0-5); LYMPHOCYTE ABS# 1.98 10x3/uL (1.32-3.57); LYMPHOCYTES 29.7 % (15-50); MCH 27.4 pg (26.0-34.0); MCHC 32.2 g/dL (31.0-37.0); MCV 85.2 fL (80.0-100.0); MEAN PLATELET VOLUME 9.6 fL (7.4-10.4); MONOCYTES 6.7 % (2-11); NEUTROPHIL ABS# 4.08 10x3/uL (1.78-5.38); NEUTROPHILS 61.3 % (40-80); PLATELET COUNT 242 10x3/uL (130-400); RBC 4.85 10x6/uL (4.20-6.10); RDW 16.6 % (11.5-14.5); WBC 6.7 10x3/uL (4.8-10.8)
[2020-05-27 05:45] LABS: ALBUMIN 2.5 g/dL (3.4-5.0); BILIRUBIN - TOTAL 0.35 mg/dL (0.2-1.3); CALCIUM 8.5 mg/dL (8.5-10.1); CARBON DIOXIDE 21.9 mmol/L (21.0-32.0); CREATININE - SERUM 2.9 mg/dL (0.6-1.3); MAGNESIUM - SERUM 2.3 mg/dL (1.8-2.4); PROTEIN - SERUM 6.1 g/dL (6.4-8.2)
[2020-05-27 05:50] LABS: POTASSIUM - SERUM 2.9 mmol/L (3.5-5.1)
--- NOTE | 2020-05-27 06:28 | NUR ---
I have reviewed this patient and I concur with the Shift Assessment completed by the Licensed Practical Nurse today this shift.
--- NOTE | 2020-05-27 07:10 | NUR ---
Lying in bed with father beside him, rouses easily, awake/alert/decreased cognitive, T/R self ad clyde, SP CATH draining concentrated urine to CDB in ample amt, cath care provided with daily bath and prn, incont of bowel with pericare provided with daily bath and prn, no s/s of pain such as moaning/groaning/grimacing observed, call light/phone/water within reach, no s/s of acute distress observed.
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
--- NOTE | 2020-05-27 12:42 | NUR ---
CM called Ciro Perez. Ciro states patient may discharge today. States he would like to have home health see patient so there is another set of eyes on him. I called the room and spoke with the father, he states to use any home health that will take his insurance. He has had area agency before. I called [facility] since they have psychiatric nurse available and faxed clinical to [place]. Home today with home health.
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
--- NOTE | 2020-05-27 13:30 | NUR ---
Nutrition Follow-up: Pt in droplet isolation; covid-19+. Nursing reports that pt not really eating meals provided by hospital but that he did eat food provided by father last night. Noted plans for d/c today. Diet: Renal, Mech Soft with Ground Meat, Nepro TID No new wt; last wt: 123# (05/17) Labs noted: K+ 2.9, Glu 110, Alb 2.5 Meds noted: Decadron, Protonix, electrolyte protocol -Rec diet liberalization; encourage PO intake and honor food preferences within diet restrictions. -Need new wt. -RD will follow up within 4-5 days if pt still admitted.
--- NOTE | 2020-05-27 14:00 | NUR ---
Provided written/verbal discharge instructions/education to father who voiced understanding, discontinued IV access, tania well.
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
--- NOTE | 2020-05-27 15:15 | NUR ---
Discharged home in stable condition to self care with father via w/c accompanied by hospital staff and family member, no s/s of acute distress noted.
--- NOTE | 2020-05-28 09:03 | MORECARE ---
CASE MANAGEMENT DISCHARGE SUMMARY PATIENT: NATE SCHULTE JR UNIT: [id number] ADM DATE: 05/16/20 AGE: 20 : 89 SEX: M ROOM/BED: D.5968 AUTHOR: GALINA,DOC PHYSICIAN: REFERRING PHYSICIAN: DELMER MA MD DATE OF SERVICE: 05/28/20 Case Management Discharge Planning Summary COMMENTS ENTERED DATE: 05/27/20 14:44 CT COMMENT TYPE: Discharge Planning REVIEWER: Vivian Ferguson [facility] has declined to accept. I sent referral to [address] and spoke with Alexis. Alexis states he will need to get a pre auth because it's an impower program. I have informed Ciro Perez. ENTERED DATE: 05/27/20 12:40 CT COMMENT TYPE: Discharge Planning REVIEWER: Vivian Ferguson called Ciro Perez. Ciro states patient may discharge today. States he would like to have home health see patient so there is another set of eyes on him. I called the room and spoke with the father, he states to use any home health that will take his insurance. He has had area agency before. I called [facility] health since they have psychiatric nurse available and faxed clinical to [place]. [place] today with home health. ENTERED DATE: 05/27/20 1:33 CT COMMENT TYPE: Discharge Planning REVIEWER: Gertrude Otero CM was notified that APS worker had came by and spoke with staff and patients family, Videotape Recording Engineer is Ciro Perez [phone]. Mr. Perez had requested that patient stay over night while father looks for a place to live. CM will continue to follow and assist as needed with discharge planning / needs. ENTERED DATE: 05/25/20 17:02 CT COMMENT TYPE: Discharge Planning REVIEWER: Shahid Yang [phone] received phone message for call back to Ciro Perez. CM called Mr. Perez back and left a message. CM will continue to follow and will assist as needed with dc plans/needs. ENTERED DATE: 05/25/20 14:48 CT COMMENT TYPE: Discharge Planning REVIEWER: Shahid Yang Phone call to [facility] ([phone]) to inquire about patient's status. CM informed that Ciro Perez will call CM back regarding status. Patient Reference ID (RID#) [id number]. CM will continue to follow and will assist as needed with dc plans/needs. DCP REVIEW SUMMARY ANTICIPATED D/C DATE: EXPECTED LOS : CASE STATUS: DCP Initiated INITIAL REVIEW: 05/25/2020 INITIAL REVIEWER: Vivian Ferguson FINAL DISCHARGE DISPOSITION: : FINAL REVIEWER: FINAL REVIEW DATE: DCP Focus Questions & Answers - Added on: QUESTION: ANSWER : PATIENT: NATE SCHULTE ENCOUNTER: [id number] MEDICAL RECORD#: [id number] ADMISSION DATE: 05/16/2020 DISCHARGE DATE: 05/27/2020 ATTENDING MD: DELMER OLIVER : AGE: 20 MARITAL STATUS: S DC PLAN ID: [id number] FACILITY: [facility] PRINTED ON: 05/28/20 9:03 CT All edits/amendments must be made on the electronic document DICTATION DATE: 05/28/20902 SUPERVISOR INSTRUMENT MAINTENANCE: DM 05/28/20902 RPT#: [id number] DC DATE:05/27/20 STATUS: DIS IN [facility] [address] [place] [address] END OF REPORT
== END 2020-05-27 15:15 | disposition home health service (06) | DRG 698 ==
LOC: D.ER 06:16 → D.M2 08:57
PROVIDERS: Family Medicine; Internal Medicine Nephrology; ADMIT Emergency Medicine; ATTEND Emergency Medicine
DX: T83.511A Infection and inflammatory reaction due to indwelling urethral catheter, initial encounter (principal); A41.9 Sepsis, unspecified organism; U07.1 COVID-19; J18.9 Pneumonia, unspecified organism; N17.9 Acute kidney failure, unspecified; B37.49 Other urogenital candidiasis; Q91.7 Trisomy 13, unspecified; E87.0 Hyperosmolality and hypernatremia; E86.0 Dehydration; N18.9 Chronic kidney disease, unspecified; D69.6 Thrombocytopenia, unspecified; M41.9 Scoliosis, unspecified; Y84.6 Urinary catheterization as the cause of abnormal reaction of the patient, or of later complication, without mention of misadventure at the time of the procedure